=== PATIENT | male | born 1955 | race Caucasian/White ===

== ENCOUNTER 2017-02-28 18:10 | Emergency (ER) | payer SELFPAY ==
[~2017-02-28] VITALS: Ht 190.5 cm; Wt 102.1 kg
[~2017-02-28 18:10] MED LIST: ACETAMINOPHEN325 M1 PO; ATIVAN1 MG PO; AZITHROMYCIN250 MG PO; BACTRIM DS TAB1 EACH PO; CEPHALEXIN500 M1 PO; LEVOFLOXACIN500 MG PO; NICOTINE PATCH1 EAC1 TD; NORCO 5-325 TA1 EACH PO; PREDNISONE20 MG PO; PROVENTIL HFA6.7 GM INH; ULTRAM50 MG PO
== END 2017-02-28 18:37 | disposition home or self-care (01) ==
LOC: ED 18:10
DX: S51.811D Laceration without foreign body of right forearm, subsequent encounter (principal); Z00.8 Encounter for other general examination; X58.XXXD Exposure to other specified factors, subsequent encounter

== ENCOUNTER 2017-04-12 15:42 | Emergency (ER) | payer SELFPAY ==
[~2017-04-12] VITALS: Ht 190.5 cm; Wt 102.1 kg
[2017-04-12] MEDS ORDERED: GUAIFEN-CODEINE10 ML PO (16:12)
[2017-04-12] MEDS ORDERED: ZITHROMAX250 MG PO (16:12)
== END 2017-04-12 16:22 | disposition home or self-care (01) ==
LOC: ED 15:42
DX: J06.9 Acute upper respiratory infection, unspecified (principal); F17.200 Nicotine dependence, unspecified, uncomplicated
CPT/HCPCS: 87502; 99283